=== PATIENT | female | born 2000 | race Caucasian/White ===

== ENCOUNTER 2020-12-26 22:15 | Emergency (ER) | payer BC, OTHER ==
[~2020-12-26] VITALS: Ht 147.3 cm; Wt 49.1 kg
[2020-12-26] MEDS ORDERED: ONDANSETRON 4 MG/2 ML (SDV) Z0FRAN ONE (22:37)
--- NOTE | 2020-12-26 22:42 | ED Psychosocial ---
General Stated Complaint: OVERDOSE Source: patient Exam Limitations: no limitations (BERNICE DUMONT) History of Present Illness Date Seen by Provider: Dec 26, 2020 Time Seen by Provider: 22:33 Initial Comments Patient presents ER by private conveyance from home with chief complaint of having taken 8-10 each ibuprofen, Excedrin and Tylenol. She denies drinking any alcohol recently. She smokes cigarettes and marijuana occasionally but none recently. She denies that she was suicidal and says she does not know why she took the meds. She does not wish to discuss what led up to the situation. She is here to go to school and is accompanied by her significant other/boyfriend. She says she wants to go home and go to bed. Her ingestions were at about 530 tonight and she started vomiting about 2 hours later and has vomited about 4 times total. She takes control pills but has no other significant medical history. She is on her menses presently. Patient uses Adderall for ADD. Father reveals that there have been 2 deaths recently: 1 of a family friend and more recently one of the patient's friends of a heroin overdose. On the same day the patient was returning home from the she apparently had some kind of verbal disagreement with her significant other and that led up to the events of tonight. (BERNICE DUMONT) Allergies and Home Medications Allergies Coded Allergies: No Known Drug Allergies (Unverified , 12/26/20) Patient Home Medication List Home Medication List Reviewed: Yes (BERNICE DUMONT) Review of Systems Constitutional: No chills, No diaphoresis, No fever EENTM: No ear discharge, No ear pain Respiratory: No cough, No short of breath Cardiovascular: No chest pain, No Hx of Intervention Gastrointestinal: No abdominal pain, No nausea, No vomiting Genitourinary: No discharge, No dysuria : No Control/STD Prophylaxis: BC Pills Musculoskeletal: No back pain, No joint pain Skin: No pruritus, No rash Psychiatric/Neurological: Denies Headache, Denies Numbness (BERNICE DUMONT) All Other Systems Reviewed Negative Unless Noted: Yes (BERNICE DUMONT) Past Gbehjnw-Nqvusg-Esizmr Hx Patient Social History Alcohol Use: Occasionally Uses Drug of Choice: Cannabis Smoking Status: Current Someday Smoker Type Used: Cigarettes (BERNICE DUMONT) Physical Exam Vital Signs - First Documented 12/26/20 22:30 Temp 36.6 Pulse 95 Resp 18 B/P (MAP) 127/83 (98) Pulse Ox 97 O2 Delivery Room Air (SHAYE SOL MD) Capillary Refill : (BERNICE DUMONT) Height, Weight, BMI Height: '" Weight: lbs. oz. kg; BMI Method: General Appearance: WD/WN, mild distress HEENT: normal ENT inspection, pharynx normal Neck: full range of motion, normal inspection Respiratory: lungs clear, normal breath sounds, no respiratory distress, no accessory muscle use Cardiovascular: normal peripheral pulses, regular rate, rhythm Peripheral Pulses: 2+ Radial Pulses (R), 2+ Radial Pulses (L) Extremities: normal range of motion, normal inspection, normal capillary refill Neurologic/Psychiatric: alert, oriented x 3, other (Depressed affect) Appearance/Memory: neat, denies illness Behavior/Eye Contact: avoids eye contact, decreased rate of speech Thoughts/Hallucinations: no apparent hallucination, other (Denies suicidal or homicidal ideation) Skin: normal color, warm/dry (BERNICE DUMONT) Progress/Results/Core Measures Results/Orders Lab Results Laboratory Tests Test 12/26/20 22:40 12/27/20 00:37 12/27/20 04:33 Range/Units White Blood Count 11.5 H 4.3-11.0 10^3/uL Red Blood Count 4.50 3.80-5.11 10^6/uL Hemoglobin 14.6 11.5-16.0 g/dL Hematocrit 41 35-52 % Mean Corpuscular Volume 92 80-99 fL Mean Corpuscular Hemoglobin 32 25-34 pg Mean Corpuscular Hemoglobin Concent 35 32-36 g/dL Red Cell Distribution Width 11.6 10.0-14.5 % Platelet Count 359 130-400 10^3/uL Mean Platelet Volume 10.7 9.0-12.2 fL Immature Granulocyte % (Auto) 0 % Neutrophils (%) (Auto) 84 H 42-75 % Lymphocytes (%) (Auto) 11 L 12-44 % Monocytes (%) (Auto) 4 0-12 % Eosinophils (%) (Auto) 0 0-10 % Basophils (%) (Auto) 0 0-10 % Neutrophils # (Auto) 9.7 H 1.8-7.8 10^3/uL Lymphocytes # (Auto) 1.3 1.0-4.0 10^3/uL Monocytes # (Auto) 0.5 0.0-1.0 10^3/uL Eosinophils # (Auto) 0.0 0.0-0.3 10^3/uL Basophils # (Auto) 0.0 0.0-0.1 10^3/uL Immature Granulocyte # (Auto) 0.0 0.0-0.1 10^3/uL Sodium Level 137 137 137 135-145 MMOL/L Potassium Level 3.5 L 3.3 L 3.7 3.6-5.0 MMOL/L Chloride Level 103 108 H 107 98-107 MMOL/L Carbon Dioxide Level 19 L 15 L 17 L 21-32 MMOL/L Anion Gap 15 H 14 13 5-14 MMOL/L Blood Urea Nitrogen 7 6 L 5 L 7-18 MG/DL Creatinine 0.82 0.68 0.71 0.60-1.30 MG/DL Estimat Glomerular Filtration Rate > 60 > 60 > 60 BUN/Creatinine Ratio 9 9 7 Glucose Level 138 H 116 H 108 H 70-105 MG/DL Calcium Level 9.9 8.7 8.6 8.5-10.1 MG/DL Corrected Calcium 8.5-10.1 MG/DL Total Bilirubin 0.5 0.1-1.0 MG/DL Aspartate Amino Transf (AST/SGOT) 22 5-34 U/L Alanine Aminotransferase (ALT/SGPT) 21 0-55 U/L Alkaline Phosphatase 51 40-136 U/L Total Protein 8.6 H 6.4-8.2 GM/DL Albumin 5.2 H 3.2-4.5 GM/DL Salicylates Level 15.8 12.2 5.0-20.0 MG/DL Acetaminophen Level 41 *H 21 10-30 UG/ML Serum Alcohol < 10 <10 MG/DL Urine Color YELLOW Urine Clarity CLEAR Urine pH 7.0 5-9 Urine Specific [place] 1.020 1.016-1.022 Urine Protein NEGATIVE NEGATIVE Urine Glucose (UA) NEGATIVE NEGATIVE Urine Ketones 2+ H NEGATIVE Urine Nitrite NEGATIVE NEGATIVE Urine Bilirubin NEGATIVE NEGATIVE Urine Urobilinogen 0.2 < = 1.0 MG/DL Urine Leukocyte Esterase NEGATIVE NEGATIVE Urine RBC (Auto) NEGATIVE NEGATIVE Urine RBC NONE /HPF Urine WBC 0-2 /HPF Urine Crystals NONE /LPF Urine Bacteria TRACE /HPF Urine Casts NONE /LPF Urine Mucus NEGATIVE /LPF Urine Culture Indicated NO Urine Opiates Screen NEGATIVE NEGATIVE Urine Oxycodone Screen NEGATIVE NEGATIVE Urine Methadone Screen NEGATIVE NEGATIVE Urine Propoxyphene Screen NEGATIVE NEGATIVE Urine Barbiturates Screen NEGATIVE NEGATIVE Ur Tricyclic Antidepressants Screen NEGATIVE NEGATIVE Urine Phencyclidine Screen NEGATIVE NEGATIVE Urine Amphetamines Screen POSITIVE H NEGATIVE Urine Methamphetamines Screen NEGATIVE NEGATIVE Urine Benzodiazepines Screen NEGATIVE NEGATIVE Urine Cocaine Screen NEGATIVE NEGATIVE Urine Cannabinoids Screen POSITIVE H NEGATIVE (SHAYE SOL MD) My Orders Orders - SHAYE SOL MD Ekg Tracing (12/26/20 22:46) General/Regular (12/27/20 Breakfast) (SHAYE SOL MD) Medications Given in ED Current Medications Medications Dose Ordered Sig/Swetha Route Start Time Stop Time Status Last Admin Dose Admin Ondansetron HCl 4 mg ONCE ONCE IVP 12/27/20 00:45 12/27/20 00:46 DC 12/27/20 00:46 4 MG Promethazine HCl 25 mg ONCE ONCE IVP 12/26/20 23:15 12/26/20 23:16 DC 12/26/20 23:23 25 MG (SHAYE SOL MD) Vital Signs/I&O (SHAYE SOL MD) Progress Progress Note #1: Time: 22:45 Progress Note Intentional overdose of acetaminophen and Motrin. Plan to get labs, COVID-19 swab in case we need to have her admitted to inpatient psych. We will then consult with poison control. 1 L of normal saline. Poison control recommends aspirin every 2 hours at least 3 doses so he can chart where it is going. They would like us to call them back with the Tylenol dosage. Progress Note #2: Time: 01:46 Progress Note Patient has been quietly resting after her second dose of 4 mg Zofran. Her salicylates are down from 15-12 and her acetaminophen is down from 40-20 well below treatment level at 7 hours which would be 80 or above. Patient has insisted that she merely wanted to sleep and denies suicidal ideation. Plan to have [facility] screen her next after discussing the case with poison control and medically clearing her. Poison control does not want to medically clear her until her acidemia has resolved. Plan to give her IV fluids and if she is going to need to be here longer than 6 AM we will plan on observing her in the hospital with a consult to social economist for mental health screening. She is no longer having nausea so were going to give her some oral fluid as well. Progress Note #3: Time: 05:06 Progress Note Discussed the case with poison control and her labs are improving. This provider as well as toxicology agree the patient is medically cleared. [facility] consult via phone. Mental health screener's have requested information to be faxed to them and gave us tracking #[id number]. Patient has been drinking fluids with no issue. She is not having any further complaints of nausea. She has been sleeping soundly but easily aroused by verbal. She has been cooperative, nonbelligerent. No evidence of hallucination. Progress Note #4: Time: 06:03 Progress Note As of shift change we are transferred care of the patient to Dr. Sol. Patient is sleeping softly has been tolerating p.o. fluids and labs are good. The patient has been medically cleared by toxicology and the ER and is awaiting to hear back from [facility] for a screening and subsequent disposition. (BERNICE DUMONT) Progress Note : Time: 09:22 Progress Note Care assumed at shift change with disposition pending throught [facility]. They did recommend inpatient treatment. I discussed this with Abhilash and her father. They would like to go some place close to [facility]. Abhilash is quite tearful and upset about missing classes and final exams as well as work. I reiterated to her the seriousness of her overdose and the need to treat her mental health. She is willing to go voluntarily into the hospital. Her father is very supportive. I have encouraged her to get in contact with [facility] regarding her classes and scheduling. I spoke with an intake/behavioral health support person at [facility] in [place], [place]. They have a female psych bed and will call me back with a provider. [id number] Patient was accepted to [facility] in [facility]. Patient was excepted by Benson the nurse practitioner on for admissions. Patient will be transferred by private vehicle with her dad to [facility]. Vital signs have been reviewed and are stable. All questions have been sought and answered. (SHAYE SOL MD) Initial ECG Impression Date: Dec 26, 2020 Initial ECG Impression Time: 22:46 Initial ECG Rate: 54 Initial ECG Rhythm: Normal Sinus Initial ECG Intervals: Normal Initial ECG Impression: Normal Initial ECG Comparisson: No Previous ECG Available Comment Normal sinus rhythm without clinically relevant ST changes. Possible LVH. (BERNICE DUMONT) Transfer of Care Time: 06:00 Care transferred to: Dr. Sol (BERNICE DUMONT) Departure Impression Primary Impression: Drug overdose Qualified Codes: T50.904A - Poisoning by unspecified drugs, medicaments and biological substances, undetermined, initial encounter Disposition: XFER SHT-TRM HOSP Condition: Stable Transfer Transfer Reason: Exceeds level of care Time Spoke to Accepting Phy: 11:00 Transfer Progress Notes Case discussed with intake/behavioral health care provider Denise at [facility]. Has been accepted for inpatient treatment of psychiatric illness. Transfer Time: 11:05 Transfer Facility: [place], [place] Method of Transfer: Private Vehicle (SHAYE SOL MD) Departure-Patient Inst. Decision time for Depature: 11:05 (SHAYE SOL MD) Patient Instructions: ALCOHOL AND SUBSTANCE ABUSE, Depression, Adult (DC) Add. Discharge Instructions: Please go straight to [facility] in [facility]. You have been accepted for admission there. Come back to the emergency room for any new, concerning or emergent complaints. Work/School Note: Work Release Form Date Seen in the Emergency Department: Dec 27, 2020 Return to Work: Jan 03, 2021 BERNICE DUMONT Dec 26, 2020 22:42 SHAYE SOL MD Dec 27, 2020 09:27
[2020-12-26] MEDS ORDERED: NS IV 1000 ML 1,000 ML IV SCH (22:45)
[2020-12-26] MEDS ORDERED: ONDANSETRON 4 MG/2 ML (SDV) Z0FRAN IVP ONE (22:45)
[2020-12-26 22:52] LABS: BASOPHILS % (AUTO) 0 % (0-10); EOSINOPHILS % (AUTO) 0 % (0-10); HEMATOCRIT 41 % (35-52); HEMOGLOBIN 14.6 g/dL (11.5-16.0); LYMPHOCYTES # (AUTO) 1.3 10^3/uL (1.0-4.0); LYMPHOCYTES % (AUTO) 11 % (12-44); MEAN CORPUSCULAR HEMOGLOBIN 32 pg (25-34); MEAN CORPUSCULAR HGB CONC 35 g/dL (32-36); MEAN CORPUSCULAR VOLUME 92 fL (80-99); MEAN PLATELET VOLUME 10.7 fL (9.0-12.2); MONOCYTES # (AUTO) 0.5 10^3/uL (0.0-1.0); MONOCYTES % (AUTO) 4 % (0-12); NEUTROPHILS # (AUTO) 9.7 10^3/uL (1.8-7.8); NEUTROPHILS % (AUTO) 84 % (42-75); PLATELET COUNT 359 10^3/uL (130-400); WHITE BLOOD COUNT 11.5 10^3/uL (4.3-11.0)
[2020-12-26] MEDS ORDERED: PROMETHAZINE INJ 25 MG/ML (PHENERGAN) AMP IVP ONE (23:15)
[2020-12-26 23:24] LABS: CHLORIDE 103 MMOL/L (98-107); POTASSIUM 3.5 MMOL/L (3.6-5.0); SODIUM 137 MMOL/L (135-145)
[2020-12-26 23:25] LABS: ALBUMIN 5.2 GM/DL (3.2-4.5)
[2020-12-26 23:26] LABS: CALCIUM 9.9 MG/DL (8.5-10.1)
[2020-12-26 23:27] LABS: GLUCOSE 138 MG/DL (70-105)
[2020-12-26 23:28] LABS: CARBON DIOXIDE 19 MMOL/L (21-32); TOTAL PROTEIN 8.6 GM/DL (6.4-8.2)
[2020-12-26 23:29] LABS: BILIRUBIN,TOTAL 0.5 MG/DL (0.1-1.0)
[2020-12-26 23:31] LABS: ALKALINE PHOSPHATASE 51 U/L (40-136); CREATININE SERUM 0.82 MG/DL (0.60-1.30); GFR ESTIMATED > 60
[2020-12-26 23:32] LABS: BUN/CREATININE RATIO 9
[2020-12-26 23:34] LABS: ALANINE AMINOTRANSFERASE 21 U/L (0-55); SALICYLATE 15.8 MG/DL (5.0-20.0)
[2020-12-26 23:42] LABS: ACETAMINOPHEN 41 UG/ML (10-30)
[2020-12-27] MEDS ORDERED: ONDANSETRON 4 MG/2 ML (SDV) Z0FRAN IVP ONE (00:45)
[2020-12-27 00:47] LABS: BILIRUBIN,URINE NEGATIVE (NEGATIVE); CLARITY,URINE CLEAR; COLOR,URINE YELLOW; GLUCOSE, URINE (UA) NEGATIVE (NEGATIVE); KETONES,URINE 2+ (NEGATIVE); LEUKOCYTE ESTERASE ,URINE NEGATIVE (NEGATIVE); NITRITE,URINE NEGATIVE (NEGATIVE); PROTEIN,URINE NEGATIVE (NEGATIVE)
[2020-12-27 01:01] LABS: BACTERIA,URINE TRACE /HPF; WBC,URINE 0-2 /HPF
[2020-12-27 01:02] LABS: CHLORIDE 108 MMOL/L (98-107); POTASSIUM 3.3 MMOL/L (3.6-5.0); SODIUM 137 MMOL/L (135-145)
[2020-12-27 01:04] LABS: CALCIUM 8.7 MG/DL (8.5-10.1)
[2020-12-27 01:05] LABS: GLUCOSE 116 MG/DL (70-105)
[2020-12-27 01:06] LABS: CARBON DIOXIDE 15 MMOL/L (21-32)
[2020-12-27 01:08] LABS: CREATININE SERUM 0.68 MG/DL (0.60-1.30); GFR ESTIMATED > 60
[2020-12-27 01:09] LABS: BUN/CREATININE RATIO 9
[2020-12-27 01:10] LABS: ACETAMINOPHEN 21 UG/ML (10-30)
[2020-12-27 01:29] LABS: AMPHETAMINE SCREEN, URINE POSITIVE (NEGATIVE); BARBITURATE SCREEN URINE NEGATIVE (NEGATIVE); BENZODIAZEPINES SCREEN URINE NEGATIVE (NEGATIVE); CANNABINOID SCREEN, URINE POSITIVE (NEGATIVE); COCAINE SCREEN URINE NEGATIVE (NEGATIVE); METHADONE STAT NEGATIVE (NEGATIVE); METHAMPHETAMINE SCREEN URINE S NEGATIVE (NEGATIVE); OPIATE SCREEN URINE NEGATIVE (NEGATIVE); OXYCODONE STAT NEGATIVE (NEGATIVE); PROPOXYPHENE STAT NEGATIVE (NEGATIVE); TRICYCLIC ANTIDEPRESSANTS SCRE NEGATIVE (NEGATIVE)
[2020-12-27 01:41] LABS: SALICYLATE 12.2 MG/DL (5.0-20.0)
[2020-12-27] MEDS ORDERED: LACTATED RINGERS 1,000 ML IV SCH (02:00)
[2020-12-27 04:49] LABS: CHLORIDE 107 MMOL/L (98-107); POTASSIUM 3.7 MMOL/L (3.6-5.0); SODIUM 137 MMOL/L (135-145)
[2020-12-27 04:50] LABS: CALCIUM 8.6 MG/DL (8.5-10.1); GLUCOSE 108 MG/DL (70-105)
[2020-12-27 04:52] LABS: CARBON DIOXIDE 17 MMOL/L (21-32)
[2020-12-27 04:54] LABS: CREATININE SERUM 0.71 MG/DL (0.60-1.30); GFR ESTIMATED > 60
[2020-12-27 04:55] LABS: BUN/CREATININE RATIO 7
[2020-12-27 11:08] VITALS: BP 110/75
== END 2020-12-27 11:16 | disposition short-term general hospital (02) ==
LOC: ER 22:17
DX: T39.311A Poisoning by propionic acid derivatives, accidental (unintentional), initial encounter (principal); F17.210 Nicotine dependence, cigarettes, uncomplicated
CPT/HCPCS: 80048; 80053; 80306; 81000; 84703; 85025; 93005; 99284; G0480 ×5; 36415; 80320; 80329